=== PATIENT | female | born 1980 | race Caucasian/White ===

== ENCOUNTER → 2020-05-06 10:49 | Outpatient (CLI) | payer MEDICARE, MEDICAID, SELFPAY ==
--- NOTE | ~2020-05-06 | XR_ITS ---
EXAMINATION: XR thoracic spine 2V DATE: 05/06/2020 11:22 INDICATION: Thoracic spine pain TECHNIQUE: AP, lateral and lateral swimmer's views of the thoracic spine were obtained. COMPARISON: 10/23/2008 FINDINGS: There has been interval insertion of a neurostimulator leads which project in the central s calixto canal of the midthoracic spine. No fracture is identified. The vertebral body heights and align ment are maintained. There is mild loss of intervertebral disc space height in the midthoracic spine. Degenerative osteophytes project from the anterior endplates of multiple lower thoracic vertebral isatu dies. IMPRESSION: 1. Interval neurostimulator lead insertion. 2. Mild thoracic spondylosis without acute findings. Reviewed, dictated and finalized at location A. 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
--- NOTE | ~2020-05-06 | XR_ITS ---
EXAMINATION: XR lumbar spine min 4V DATE: 05/06/2020 11:22 INDICATION: Low back pain TECHNIQUE: Anteroposterior and lateral in neutral, flexion and extension views of the lumbar spine, a nd cone-down lateral view of the lumbosacral junction were obtained. COMPARISON: 10/25/2008 FINDINGS: The vertebral body heights and alignment are normal. There is no laxity with flexion or ext ension. There is moderate loss of intervertebral disc space height at L3-4 and L4-5. No fracture is i dentified. Small degenerative osteophytes project from the anterior endplates of multiple vertebral b odies. There is moderate to severe facet osteoarthritis of the lower lumbar spine. A neurostimulator is implanted in the right posterior soft tissues with its leads coursing into the central spinal mina l of the lower thoracic spine. IMPRESSION: 1. Moderate lower lumbar spondylosis. 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
== END ==
PROVIDERS: PCP Family Medicine; Visit Provider Nurse Practitioner Family
DX: M47.814 Spondylosis without myelopathy or radiculopathy, thoracic region (principal); M47.816 Spondylosis without myelopathy or radiculopathy, lumbar region
CPT/HCPCS: 72070; 72110